=== PATIENT | female | born 1935 | race Caucasian/White ===

== ENCOUNTER → 2019-05-29 16:28 | Outpatient (CLI) | payer MEDICARE, SELFPAY ==
[2015-09-02 18:19] VITALS: BMI 34.4
[2019-05-29 19:14] LABS: M R Staph aureus DNA By PCR Negative (Negative); Probe Check PASS; Specimen Processing Control PASS; Staph aureus DNA By PCR POSITIVE (Negative)
== END ==
PROVIDERS: Family Provider Student in an Organized Health Care Education/Training Program; PCP Student in an Organized Health Care Education/Training Program; Referring Provider Podiatrist; Visit Provider Podiatrist
DX: L03.115 Cellulitis of right lower limb (principal); M25.571 Pain in right ankle and joints of right foot
CPT/HCPCS: 87070; 87077; 87186; 87205; 87640

== ENCOUNTER 2024-09-17 12:00 | Outpatient (RCR) | payer MEDICARE, SELFPAY ==
--- NOTE | 2024-08-20 14:35 | HP.PTEVAL ---
Patient's Visit Information Visit Information Visit Information: RONALD CALLE is a 89 year old F referred to Physical Therapy by Dr. James Bello DPM with a diagnosis of L posterior tib dysfunction. Date of Evaluation: 08/20/24 Physical Therapist: Mehdi Ray, PT, ATC Visit Plan Frequency: 2x /Week Duration: 4-6 Weeks Plan: L ankle DF stretching, DTR, L ankle strengthening, balance and proprio, gait training, and HEP Subjective Subjective: Pt reports L medial ankle pain for at least 6 months. Pt reports she was diagnosed with L posterior tibial dysfunction at that time. Pt notes she received a cortisone injection at that time which took away most of her pain. Pt notes she went back and received a second injection 3 months later that did not have the same effect. Pt notes she blames the effectiveness of the injection on herself secondary to going and visiting a sick brother that lived far away and not letting the cortisone injection settle in. Pt reports she is still in the same amount of pain that she was prior to the injection. Pt reports she has had xrays to her L foot which had no significant findings. Pt reports she is in no pain unless she performs weightbearing activity. Pt is retired at this time. Pt lives with her here in town and has stairs that she negotiates one step at a time. 0/10 pain while sitting here at rest, 9/10 pain at worst while she is weightbearing. Pain L medial ankle: Pain Intensity (Out of 10): 0 Pain Intensity Range: 9 Objective Objective: Neuro: B LE sensation is WNL to light touch Palpation: Pt is very tender on the medial aspect of L ankle. No obvious deformity noted at this time ROM: R ankle DF= 9, AR= 50; L ankle DF= 6, PF= 60 degrees MMT: R ankle DF= 33, AR= 40; L ankle DF= 33, PF= 39 #F Balance/Special Test Scores Lower Extremity Functional Score: 40 Goals Goal 1:: Decrease L ankle pain x 50% to aid with standing tolerance Goal Time Frame: 4-6 Weeks Goal 2:: Increase L ankle DF ROM x 10 degrees to aid with decreasing pain Goal Time Frame: 4-6 Weeks Goal 3:: I with HEP Goal Time Frame: 4-6 Weeks Rehabilitation Potential Physical Therapy Diagnosis: Pt has L ankle pain, weakness, and limited ROM secondary to L post tib dysfunction Rehabilitation Potential: Good Anticipated Interventions Patient/Client Instruction: Educate patient on: Condition and Plan of Care For the Purpose of:: To improve self management Therapeutic Exercise to Include: Strength training, Endurance training, Balance training, Flexibilty training, Gait and locomotor training and Active ROM For the Purpose of:: To decrease pain, To increase ROM and To improve muscle performance and motor function Cryotherapy (ice pack, ice massage): Yes For the Purpose of:: To decrease pain Text: Thank you for the opportunity to evaluate your patient. For Medicare and Medicare HMO plans, please review the plan of care and approve it. It will need to be FAXED BACK to us at [phone] for Medicare purposes. For Medicare only, by signing this I certify the plan of care. Please let me know if there are questions or concerns regarding this plan of care. Physician Signature: Date:
--- NOTE | 2024-09-17 12:36 | HP.PTREVAL ---
Re-Evaluation Intro: Dr. Jamse Bello, DPM, It has been my pleasure to treat RONALD CALLE over the last 8 visits for L posterior tib dysfunction. Please see the progress note below for an update on the physical therapy plan of care! Subjective Subjective: Pt reports she is doing better, but the pain is not significantly improved. Objective Objective/Function: L medial ankle pain is 4/10 constantly Pt is I with HEP L ankle DF= 7 degrees Pt has made some progress, but is still limited by pain Plan Plan Plan: Follow up or discharge after 10/24/24 Balance/Gait/Functional tests Balance/Special Test Scores Lower Extremity Functional Score: 50 Goals Goals Goal 1:: Decrease L ankle pain x 50% to aid with standing tolerance Goal Time Frame: 4-6 Weeks Goal Progress: Goal Met Goal 2:: Increase L ankle DF ROM x 10 degrees to aid with decreasing pain Goal Time Frame: 4-6 Weeks Goal Progress: Progressing Goal 3:: I with HEP Goal Time Frame: 4-6 Weeks Goal Progress: Goal Met Anticipated Interventions Anticipated Interventions Patient/Client Instruction: Educate patient on: Condition and Plan of Care For the Purpose of:: To improve self management Therapeutic Exercise to Include: Strength training, Endurance training, Balance training, Flexibilty training, Gait and locomotor training and Active ROM For the Purpose of:: To decrease pain, To increase ROM and To improve muscle performance and motor function Cryotherapy (ice pack, ice massage): Yes For the Purpose of:: To decrease pain Re-Evaluation Ending Re-evaluation ending: Please do not hesitate to contact me at [phone] by phone or if you have questions or concerns regarding this new plan of care! Sincerely, Mehdi Ray, PT, ATC
--- NOTE | 2025-02-09 15:10 | HP.PT.NRP ---
Patient Information Patient Information: RONALD CALLE was seen in my office for initial evaluation on 08/20/24. The following Plan of Care was established for this patient: POC Established Initial Frequency: 2x /Week Initial Duration: 4-6 Weeks Anticipated Interventions Patient/Client Instruction: Educate patient on: Condition and Plan of Care For the Purpose of:: To improve self management Therapeutic Exercise to Include: Strength training, Endurance training, Balance training, Flexibilty training, Gait and locomotor training and Active ROM For the Purpose of:: To decrease pain, To increase ROM and To improve muscle performance and motor function Cryotherapy (ice pack, ice massage): Yes For the Purpose of:: To decrease pain Last Seen Last Seen: This patient was last seen in our office . Pertinent comments regarding their Physical therapy will appear below: Pt has not returned for greater than 30 days and is discontinued at this time. At this point I will be discontinuing this patient from physical therapy. I would be happy to see this patient again in the future if found appropriate by the physician. Thank you! Mehdi Ray, PT, ATC Balance/Gait/Functional tests Balance/Special Test Scores Lower Extremity Functional Score: 50
== END 2024-09-17 19:00 | disposition home or self-care (01) ==
LOC: PT 12:00
PROVIDERS: PCP Student in an Organized Health Care Education/Training Program; Referring Provider Student in an Organized Health Care Education/Training Program; Visit Provider Student in an Organized Health Care Education/Training Program
DX: M76.822 Posterior tibial tendinitis, left leg (principal)
CPT/HCPCS: 97110; 97161; 97530